=== PATIENT | male | born 1945 | race African-American/Black ===

== ENCOUNTER → 2017-03-27 | Outpatient (CLI) | payer MEDICARE ==
[~2017-03-27] MED LIST: ASPIRIN PO; DYAZIDE 37.5/251 CAP PO; NIFEDICAL PO
--- NOTE | ~2017-03-27 | US5 ---
[facility] A Service of [facility] RADIOLOGY TEXT RESULTS PATIENT: OSWALDO BARNES LOCATION: [facility] : 43 UNIT #: [id number] AGE: [address]: Nasim Bray MD SEX: M ORDER DR: [id number] [facility]. [place], [place] [address] [id number] O MR#: [id number] Acc #: [id number] NAME: OSWALDO BARNES : 1945 SEX: M STUDY DATE/TIME: 03/27/2017 8:36 UNIT: [facility] ROOM: STUDY DESCRIPTION: US Abdominal Complete Attending Physician: Nasim Bray III, M.D. Referring Physician: Nasim Bray III, M.D. Ordering Physician: Nasim Bray III, M.D. Primary Care Physician: Nasim Bray III, M.D. MEDICAL IMAGING REPORT This report is preliminary unless electronic signature is present EXAM Complete abdominal ultrasound COMPARISON None INDICATIONS 71-year-old male with hepatitis C virus and stage 4 cirrhosis. Patient's hepatitis C was treated in 2012. Surveillance for primary hepatic malignancy and evidence of portal hypertension. FINDINGS Visualized portions of the pancreas are unremarkable. Hepatic contour is irregular consistent with cirrhosis. The liver is small, also consistent with cirrhosis. Due to the coarse nature of the liver detailed evaluation of the hepatic parenchyma is limited. There is normal caliber of the common bile duct. The gallbladder is contracted, limiting evaluation. There is also some obscuration by shadowing from bowel gas at the gallbladder fossa. Normal caliber of the visualized abdominal aorta. The kidneys are normal. The spleen is normal in size and appearance. Urinary bladder is not seen. IMPRESSION 1. Findings of cirrhosis without evidence of portal hypertension. 2. Please note that the gallbladder is not well evaluated on this study due to shadowing from bowel gas. 3. Normal biliary caliber. Dictated by... Henri Hernandez M.D. [facility] A Service [facility] RADIOLOGY TEXT RESULTS PATIENT: OSWALDO BARNES LOCATION: [facility] : 43 UNIT #: [id number] AGE: [address]: Nasim Bray MD SEX: M ORDER DR: THIS IS AN ELECTRONICALLY VERIFIED REPORT Henri Hernandez M.D. at 04/01/2017 11:50 AM PUJA/myke TD: 03/28/2017 00:26 JOB #: [id number] MEDICAL IMAGING REPORT Page 1 of 1 COPY
== END | disposition home or self-care (01) ==
LOC: CWCC 08:03
DX: B18.2 Chronic viral hepatitis C (principal); K74.60 Unspecified cirrhosis of liver
CPT/HCPCS: 76700